=== PATIENT | female | born 1980 | race Caucasian/White ===

== ENCOUNTER 2017-07-18 19:15 | Emergency (ER) | payer MEDICAID ==
[2017-07-18 19:19] VITALS: BP 155/89
--- NOTE | 2017-07-18 19:30 | EDM.PDOC ---
ED HPI GENERAL MEDICAL PROBLEM - General Chief Complaint: Neurological Problem Stated Complaint: AMBULANCE Time Seen by Provider: 07/18/17 19:30 Source of Information: Reports: Patient History Limitations: Reports: No Limitations - History of Present Illness INITIAL COMMENTS - FREE TEXT/NARRATIVE: 36-year-old female presents the ED per ambulance when her family found her at home in a stuporous state. The annulus personnel were able to arouse her and identify that she had taken unidentified amount of a muscle relaxer at some point in the day. She is confused as to when she may have taken it and perhaps she took some this morning and some this afternoon again because of low back pain. The only other medication she reports taking is Tylenol. 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 She also fell recently and bruised up her left anterior knee. She did get up and walk to the chair in the hallway once the paramedics were able to arouse her. She walked as if she was drunk. She denies drinking any alcohol recently. Strength was about 6 days ago. There is no evidence of trauma to her head or neck. She is alert and answers quite well. She has mild dysarthric speech. She doesn't know the name of the muscle relaxant as it was never prescribed to her. These are somebody else's prescriptive medications. Therefore could've been Soma , Flexeril Norflex etc. She denies taking any Benadryl today. She apparently does not take any other medications. Vital signs her feel O2 sats to be 100% on room air. Respiratory rate of 13. No respiratory distress. Onset: Today, Unknown/Unsure (Unclear when she take had taken dosage of the muscle relaxants. It's unclear also how many she took.) Onset Date: 07/18/17 (Family identified that she was not answering her phone and had a nephew check on who found her in her bed unresponsive at about 1800 hrs.) Duration: Hour(s): Location: Reports: Generalized (Under the influence of a intoxicated.) Quality: Reports: Other Severity: Moderate (Dysarthric speech and ataxic gait.) Improves with: Reports: Other (Paramedics were able to arouse her with aggressive physical stimuli.) Worsens with: Reports: None Context: Reports: Other (Accidental over ingestion of muscle relaxant by history.). Denies: Activity, Exercise, Lifting, Sick Contact, Trauma Associated Symptoms: Reports: Confusion, Malaise, Other. 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: Musculoskeletal History: Reports: Back Pain, Chronic Oncologic (Cancer) History: Reports: Malignant Melanoma Dermatologic History: Reports: Melanoma Social & Family History - Tobacco Use Smoking Status *Q: Never Smoker - Caffeine Use Caffeine Use: Reports: None - Recreational Drug Use Recreational Drug Use: No - Living Situation & Occupation Living situation: Reports: Single Occupation: Unemployed ED ROS GENERAL - Review of Systems Review Of Systems: See Below Constitutional: Reports: Weakness (Generalized.) HEENT: Reports: Other (Speech is mildly dysarthric.) Respiratory: Reports: No Symptoms Cardiovascular: Reports: No Symptoms Endocrine: Reports: Fatigue GI/Abdominal: Reports: Nausea (Claims she is mildly nauseated at this time.) : Reports: No Symptoms Musculoskeletal: Reports: Back Pain (Diffuse low back pain radiate to the buttock but not down the legs), Joint Pain (Left knee pain after she fell on her left knee 2 days ago.) Skin: Reports: Other (Has a small puncture wound to the medial aspect of her left great toe.) Neurological: Reports: Confusion, Dizziness, Trouble Speaking (Dysarthria but mild.), Difficulty Walking (Ataxic gait required 2 person assist), Weakness, Change in Speech, Gait Disturbance. Denies: Seizure, Syncope, Tingling Psychiatric: Reports: No Symptoms Hematologic/Lymphatic: Reports: No Symptoms Immunologic: Reports: No Symptoms ED EXAM, NEURO - Physical Exam Exam: See Below Exam Limited By: Altered Mental Status (Mild. She is able to answer most questions appropriately although she can't remember when she took the supposedly muscle relaxants or when she last had anything to eat or drink.) General Appearance: Lethargic, Other (Speech is mildly dysarthric.) Eye Exam: Right Eye: Other (Pupils are sluggish), Bilateral Eye: Nystagmus (No nice diagnosis), PERRL Throat/Mouth: Normal Inspection, Normal Lips, Normal Oropharynx, Other Head Exam: Atraumatic (Tongue and oral cavity is moist. There is no evidence of tongue bite injury to suggest seizure.), Normocephalic Neck: Normal Inspection, Supple, Non-Tender, Full Range of Motion. No: Lymphadenopathy (L), Lymphadenopathy (R) Respiratory/Chest: No Respiratory Distress, Lungs Clear, Normal Breath Sounds, No Accessory Muscle Use, Other Cardiovascular: Normal Peripheral Pulses, Regular Rate, Rhythm, No Edema, No Gallop, No Murmur (Upper anterior chest is clear with no signs of aspiration.), No Rub GI/Abdominal: Normal Bowel Sounds, Soft, Non-Tender, No Organomegaly, Other ( Mildly obese.) Neurological: Normal Dorsiflexion, CN II-XII Intact, Normal Plantar Flexion, Normal Reflexes, Oriented x 3, Other (Rather flat affect.). No: Normal Gait DTR: 1+: Achilles (R), Achilles (L), 2+: Bicep (R), Bicep (L), Patella (R), Patella (L) Back Exam: Other (Not examined at this time) Extremities: Normal Inspection, Normal Range of Motion, Non-Tender, No Pedal Edema, Other (Small puncture wound that has been actively bleeding superficial skin janice medial aspect of left great toe.) Psychiatric: Flat Affect Skin Exam: Warm, Dry, Intact, Normal Color, No Rash Comments: Vital signs are normal. EKG INTERPRETATION EKG Date: 07/18/17 Time: 20:05 Rhythm: NSR Rate (Beats/Min): 68 [place]: Normal P-Wave: Present QRS: Other (Early R-wave transition. Consider septal hypertrophy pattern.) ST-T: Normal QT: Prolonged EKG Interpretation Comments: Borderline ECG. Course - Vital Signs Last Recorded V/S: Last Vital Signs Temp 36.3 C 07/18/17 19:16 Pulse 78 07/18/17 19:16 Resp 13 07/18/17 19:16 BP 155/89 H 07/18/17 19:16 Pulse Ox 100 07/18/17 19:16 - Orders/Labs/Meds Orders: Active Orders 24 hr Category Date Time Status EKG Documentation Completion [RC] STAT Care 07/18/17 19:36 Active Labs: Laboratory Tests 07/18/17 07/18/17 Range/Units 19:45 19:45 WBC 6.59 (3.98-10.04) K/mm3 RBC 4.87 (3.98-5.22) M/mm3 Hgb 11.4 (11.2-15.7) gm/L Hct 37.7 (34.1-44.9) % MCV 77.4 L (79.4-94.8) fl MCH 23.4 L (25.6-32.2) pg MCHC 30.2 L (32.2-35.5) g/dl RDW Std Deviation 50.6 H (36.4-46.3) fL Plt Count 374 H (182-369) K/mm3 MPV 9.2 L (9.4-12.3) fl Neutrophils % (Manual) 61 H (40-60) % Band Neutrophils % 0 (0-10) % Lymphocytes % (Manual) 30 (20-40) % Atypical Lymphs % 0 % Monocytes % (Manual) 5 (2-10) % Eosinophils % (Manual) 3 (0.7-5.8) % Basophils % (Manual) 1 (0.1-1.2) Platelet Estimate Adequate Hypochromasia 1+ slight Poikilocytosis 1+ slight Anisocytosis 1+ slight Microcytosis 1+ slight RBC Morph Comment Not Reportable Sodium 142 (136-145) mEq/L Potassium 3.3 L (3.5-5.1) mEq/L Chloride 107 (98-107) mEq/L Carbon Dioxide 26 (21-32) mEq/L Anion Gap 12.3 (5-15) BUN 11 (7-18) mg/dL Creatinine 0.7 (0.55-1.02) mg/dL Est Cr Clr Drug Dosing 118.99 mL/min Estimated GFR (MDRD) > 60 (>60) mL/min BUN/Creatinine Ratio 15.7 (14-18) Glucose 95 (74-106) mg/dL Calcium 8.3 L (8.5-10.1) mg/dL Magnesium 1.7 L (1.8-2.4) mg/dl Total Bilirubin 0.6 (0.2-1.0) mg/dL AST 14 L (15-37) U/L ALT 19 (14-59) U/L Alkaline Phosphatase 54 (46-116) U/L Total Protein 6.5 (6.4-8.2) g/dl Albumin 3.2 L (3.4-5.0) g/dl Globulin 3.3 gm/dL Albumin/Globulin Ratio 1.0 (1-2) Acetaminophen 0 L (10-30) ug/mL Ethyl Alcohol 0.00 (0.00) gm% Meds: Medications Discontinued Medications Generic Name Dose Route Start Last Admin Trade Name Henry PRN Reason Stop Dose Admin Dextrose/Sodium Chloride 1,000 mls @ 500 mls/hr 07/18/17 19:45 07/18/17 19:59 Dextrose 5%-Normal Saline IV 500 mls/hr ASDIRECTED IVY Administration Ondansetron HCl 4 mg 07/18/17 19:36 07/18/17 19:58 Zofran IVPUSH 07/18/17 19:37 Not Given ONETIME ONE - Radiology Interpretation Free Text/Narrative:: 36-year-old female presents to the ED per ambulance after her family found her unresponsive in her own bed. Paramedics were able to arouse her. Today they identified that she been taking some form of muscle relaxants perhaps throughout the entire day for low back pain. Appears that she has taken too much and caused excessive sedation. Unclear what the muscle relaxants are. They' ve not been prescribed to her they were some doses medication. Family members don't know what it is either. Paramedics were able to arouse her and get up from bed and walk to the chair in the hallway. She was exhibiting ataxic gait and speech is mildly dysarthric. She denies drinking any alcohol today and I spell no alcohol on her breath. No medications regularly. Other than being lethargic and with mild dysarthric speech neurologically she is intact with no signs of significant trauma. Point is diffuse low back pain which was not addressed at this time due to the patient not having a not being able to get out of bed or standing. Will examine her back later. Plan IV will be D5 normal saline at 500 mils per hour. Routine labs to be collected including ethanol and acetaminophen level. An ECG will be done to make sure the QT interval is okay. She will remain in the ED for observation until she can walk and talk normally. - Re-Assessments/Exams Free Text/Narrative Re-Assessment/Exam: 07/18/17 20:38 Labs are back. White count is 6.59 with 61% neutrophils no bands. Hemoglobin is a little low 11.4 with hematocrit of 37.7. MCV is a little low at 77.4 suggesting iron deficiency. Umbilical normal 3 years 74,000. Sodium is 142 with potassium slightly low at 3.3. Chloride 107 with a bicarbonate 26. And a gap is 12.3 with a BUN of 11. Creatinine is 0.7. She therefore is well hydrated. Glucose is 95 with a calcium of 8.3. Magnesium is 1.7. Liver function normal. Acetaminophen level was 0 and blood alcohol level is 0. 07/18/17 20:42 patient is much more alert and talkative. She's been up to the bathroom and could walk normally. I did examine her back which is coming from the mid left upper back. There appears to be overlying muscle spasm likely due to mild rib head subluxation but I did not find anything dramatic. Nothing that would require an x-ray. Will place her on Voltaren 50 mg to be taken every 8 hours when necessary for relief of pain and inflammation. 24 tablets prescribed. We discharged home in care of her daughter. Departure - Departure Time of Disposition: 20:43 Disposition: Home, Self-Care 01 Condition: Fair Clinical Impression: Sedative overdose Qualifiers: Encounter type: initial encounter Injury intent: accidental or unintentional Qualified Code(s): T42.71XA - Poisoning by unspecified antiepileptic and sedative-hypnotic drugs, accidental (unintentional), initial encounter Left-sided thoracic back pain Qualifiers: Chronicity: unspecified Qualified Code(s): M54.6 - Pain in thoracic spine - Discharge Information Prescriptions: Diclofenac Sodium [Voltaren] 50 mg PO Q8H PRN #24 tab.ec PRN Reason: Relief of back pain Instructions: Accidental Overdose, Back Pain, Adult Referrals: PCP,None [Primary Care Provider] - Forms: ED Department Discharge, ED Return to Work/School Form Additional Instructions: Evaluation the emergent today in regards to oversedation from taking muscle relaxants today. Muscle relaxants are being taken for back pain. It's unclear which muscle relaxant was being utilized. Some of them can last up to 12 hours in duration. You're found unarousable by family members and therefore the ambulance was summoned. They found it to be hypersomnolence or sedated but arousable on strong physical stimuli. Speech was mildly dysarthric like you had been drinking. He did get you up to walk to the chair in the hallway and found it to be mildly ataxic i.e. offkilter with balance like you have been drinking. This is an effect of the muscle relaxants. You're treated in the ED with intravenous fluids and time for the medication to wear off a bit. Lab tests proved to be within normal limits with no alcohol on board and no extravesical acetaminophen levels on your bloodstream. You're mental capacities improved while in the hospital as dig her ability to walk. I would therefore suggest muscle relaxant only at bedtime as they are strongly sedating in some people. Sometimes you may only need half a dose. Suggest use of Voltaren 50 mg every 8 hours as needed for relief of pain and inflammation in your been met mid back on the left side. This appears to be mild overlying muscle spasm likely due to a mild rib head subluxation. I did not find any pathology that would warn to x- ray at this time. Pain persists I would suggest chiropractic assessment and treatment. - My Orders Last 24 Hours: My Active Orders 07/18/17 19:36 EKG Documentation Completion [RC] STAT - Assessment/Plan Last 24 Hours: My Active Orders 07/18/17 19:36 EKG Documentation Completion [RC] STAT
[2017-07-18] MEDS ORDERED: Ondansetron 4 MG/2 ML SDV IVPUSH ONE (19:36)
[2017-07-18] MEDS ORDERED: Dextrose 5%-0.9% NaCl 1,000 ML IV SCH (19:45)
[2017-07-18 20:13] LABS: ACETAMINOPHEN 0 ug/mL (10-30)
== END 2017-07-18 21:00 | disposition home or self-care (01) ==
LOC: JD.ED 19:15
DX: T42.71XA Poisoning by unspecified antiepileptic and sedative-hypnotic drugs, accidental (unintentional), initial encounter (principal); M54.6 Pain in thoracic spine
CPT/HCPCS: 36415; 80053; 83735; 85025; 93005; 96360; 99285; G0480; J7042; 99284

== ENCOUNTER 2020-08-18 18:36 | Observation (INO) | payer MEDICAID ==
[2020-08-18] MEDS ORDERED: Sodium Chloride 0.9% 1,000 ML IV STA (19:35)
[2020-08-18] MEDS ORDERED: Ketorolac 30 MG/ML SDV IVPUSH ONE (19:35)
[2020-08-18] MEDS ORDERED: Ampicillin/Sulbactam Na 3 GM in Sodium Chloride 0.9% 100 ML IV ONE (19:42)
--- NOTE | 2020-08-18 19:45 | EDM.PDOC ---
ED HPI GENERAL MEDICAL PROBLEM - General Chief Complaint: ENT Problem Stated Complaint: SWOLLEN FACE TOOTH PAIN Time Seen by Provider: 08/18/20 18:42 Source of Information: Reports: Patient, RN Notes Reviewed History Limitations: Reports: No Limitations - History of Present Illness INITIAL COMMENTS - FREE TEXT/NARRATIVE: Patient is a 40-year-old female presenting to the emergency department with complaints of pain and swelling to her left lower jaw. She reports that she began having some discomfort last evening. Upon waking this morning, the area was swollen and has been getting progressively larger throughout the day. She reports that the swelling has progressed to the point where she cannot open her mouth. She reports that she has some old cavities in this area. She was making phone calls throughout the day to try to get in with a dentist, however none of them would see her as a new client. She denies any fever, chills, nausea, or vomiting. 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: Musculoskeletal History: Reports: Back Pain, Chronic Oncologic (Cancer) History: Reports: Malignant Melanoma Dermatologic History: Reports: Melanoma Social & Family History - Tobacco Use Tobacco Use Status *Q: Never Tobacco User - Caffeine Use Caffeine Use: Reports: None - Recreational Drug Use Recreational Drug Use: Yes Recreational Drug Type: Reports: Marijuana/Hashish Recreational Drug Use Frequency: Weekly - Living Situation & Occupation Living situation: Reports: Single Occupation: Unemployed ED ROS ENT - Review of Systems Review Of Systems: See Below Constitutional: Reports: No Symptoms. Denies: Fever, Chills HEENT: Reports: Ear Pain, Other (left sided facial swelling and pain) Respiratory: Reports: No Symptoms Cardiovascular: Reports: No Symptoms Endocrine: Reports: No Symptoms GI/Abdominal: Reports: No Symptoms : Reports: No Symptoms Musculoskeletal: Reports: No Symptoms Skin: Reports: No Symptoms Neurological: Reports: No Symptoms Psychiatric: Reports: No Symptoms Hematologic/Lymphatic: Reports: No Symptoms Immunologic: Reports: No Symptoms ED EXAM, ENT - Physical Exam Exam: See Below General Appearance: Alert, Anxious, Mild Distress Ears: Normal External Exam, Normal Canal, Hearing Grossly Normal, Normal TMs Mouth/Throat: Dental Abcess, Dental Pain, Lip Swelling (left lower), Other (significant left lower facial swelling) Respiratory/Chest: No Respiratory Distress, Lungs Clear, Normal Breath Sounds, No Accessory Muscle Use, Chest Non-Tender Cardiovascular: Normal Peripheral Pulses, Regular Rate, Rhythm, No Edema, No Gallop, No JVD, No Murmur, No Rub Neurological: Alert, Oriented, CN II-XII Intact, Normal Cognition, Normal Gait, Normal Reflexes, No Motor/Sensory Deficits Psychiatric: Normal Affect, Normal Mood Skin: Warm, Dry, Intact, Normal Color, No Rash Course - Vital Signs Last Recorded V/S: Last Vital Signs Temp 98.8 F 08/19/20 15:52 Pulse 95 08/19/20 15:52 Resp 20 08/19/20 15:52 BP 136/74 08/19/20 15:52 Pulse Ox 96 08/19/20 15:52 - Orders/Labs/Meds Orders: Active Orders 24 hr Category Date Time Status Patient Status [ADT] Routine ADT 08/18/20 21:59 Active Sodium Chloride 0.9% [Saline Flush] Med 08/18/20 19:35 Active 10 ml FLUSH ASDIRECTED PRN Peripheral IV Insertion Adult [OM.PC] Stat Oth 08/18/20 19:35 Ordered Medication Orders Acetaminophen (Acetaminophen 325 Mg Tab) 650 mg PO Q4H PRN PRN Reason: Pain (Mild 1-3)/fever Last Admin: 08/19/20 19:07 Dose: 650 mg Documented by: SANDRA Dexamethasone (Dexamethasone 4 Mg Tab) [address] [facility] Last Admin: 08/19/20 08:49 Dose: 6 mg Documented by: Admin: 08/18/20 23:26 Dose: 6 mg Documented by: SATYA Enoxaparin Sodium (Enoxaparin 30 Mg/0.3 Ml Syringe) [address] [facility] Last Admin: 08/19/20 09:38 Dose: 30 mg Documented by: Admin: 08/18/20 23:27 Dose: 30 mg Documented by: SATYA Ampicillin Sodium/Sulbactam (Sodium 3 gm/ Sodium Chloride) 100 mls @ 200 mls/hr IV Q6H IVY Last Admin: 08/19/20 18:59 Dose: 200 mls/hr Documented by: Infusion: 08/19/20 14:43 Dose: 200 mls/hr Documented by: Admin: 08/19/20 14:13 Dose: 200 mls/hr Documented by: Infusion: 08/19/20 09:19 Dose: 200 mls/hr Documented by: Admin: 08/19/20 08:49 Dose: 200 mls/hr Documented by: Infusion: 08/19/20 03:13 Dose: 200 mls/hr Documented by: Admin: 08/19/20 02:43 Dose: 200 mls/hr Documented by: SATYA Ketorolac Tromethamine (Ketorolac 15 Mg/Ml Sdv) 15 mg IVPUSH Q6H PRN PRN Reason: Pain Stop: 08/23/20 02:01 Last Admin: 08/19/20 17:14 Dose: 15 mg Documented by: Admin: 08/19/20 08:48 Dose: 15 mg Documented by: SANDRA Ondansetron HCl (Ondansetron 4 Mg Tab.Dis) 4 mg PO Q4H PRN PRN Reason: nausea, able to take PO Sodium Chloride (Sodium Chloride 0.9% 10 Ml Syringe) 10 ml FLUSH ASDIRECTED PRN PRN Reason: Keep Vein Open Last Admin: 08/18/20 21:22 Dose: 10 ml Documented by: Admin: 08/18/20 19:51 Dose: 10 ml Documented by: APRIL Labs: Laboratory Tests 08/18/20 08/18/20 Range/Units 19:50 19:50 WBC 12.73 H (3.98-10.04) K/mm3 RBC 4.97 (3.98-5.22) M/mm3 Hgb 10.6 L (11.2-15.7) gm/dl Hct 35.8 (34.1-44.9) % MCV 72.0 L D (79.4-94.8) fl MCH 21.3 L (25.6-32.2) pg MCHC 29.6 L (32.2-35.5) g/dl RDW Std Deviation 48.6 H (36.4-46.3) fL Plt Count 461 H D (182-369) K/mm3 MPV 8.6 L (9.4-12.3) fl Neut % (Auto) 80.8 H (34.0-71.1) % Lymph % (Auto) 11.1 L (19.3-51.7) % [place] % (Auto) 7.0 (4.7-12.5) % Eos % (Auto) 0.7 (0.7-5.8) Baso % (Auto) 0.2 (0.1-1.2) % Neut # (Auto) 10.29 H (1.56-6.13) K/mm3 Lymph # (Auto) 1.41 (1.18-3.74) K/mm3 [place] # (Auto) 0.89 H (0.24-0.36) K/mm3 Eos # (Auto) 0.09 (0.04-0.36) K/mm3 Baso # (Auto) 0.02 (0.01-0.08) K/mm3 Manual Slide Review Abnormal smear Sodium 139 (136-145) mEq/L Potassium 3.5 (3.5-5.1) mEq/L Chloride 102 (98-107) mEq/L Carbon Dioxide 25 (21-32) mEq/L Anion Gap 15.5 H (5-15) BUN 6 L (7-18) mg/dL Creatinine 0.8 (0.55-1.02) mg/dL Est Cr Clr Drug Dosing 86.63 mL/min Estimated GFR (MDRD) > 60 (>60) mL/min BUN/Creatinine Ratio 7.5 L (14-18) Glucose 117 H (70-99) mg/dL Calcium 8.2 L (8.5-10.1) mg/dL Total Bilirubin 0.7 (0.2-1.0) mg/dL AST 12 L (15-37) U/L ALT 19 (14-59) U/L Alkaline Phosphatase 72 (46-116) U/L Total Protein 7.8 (6.4-8.2) g/dl Albumin 3.3 L (3.4-5.0) g/dl Globulin 4.5 gm/dL Albumin/Globulin Ratio 0.7 L (1-2) Meds: Medications Generic Name Dose Route Start Last Admin Trade Name Henry PRN Reason Stop Dose Admin Acetaminophen 650 mg 08/18/20 22:26 08/19/20 19:07 Acetaminophen 325 Mg Tab PO 650 mg Q4H PRN Administration Pain (Mild 1-3)/fever Dexamethasone 6 mg 08/18/20 22:30 08/19/20 08:49 Dexamethasone 4 Mg Tab PO 6 mg DAILY IVY Administration Enoxaparin Sodium 30 mg 08/18/20 22:30 08/19/20 09:38 Enoxaparin 30 Mg/0.3 Ml Syringe SUBCUT 30 mg Q12H IVY Administration Ampicillin Sodium/Sulbactam 100 mls @ 200 mls/hr 08/19/20 02:00 08/19/20 18:59 Sodium 3 gm/ Sodium Chloride IV 200 mls/hr Q6H IVY Administration Ketorolac Tromethamine 15 mg 08/19/20 02:00 08/19/20 17:14 Ketorolac 15 Mg/Ml Sdv IVPUSH 08/23/20 02:01 15 mg Q6H PRN Administration Pain Ondansetron HCl 4 mg 08/18/20 22:26 Ondansetron 4 Mg Tab.Dis PO Q4H PRN nausea, able to take PO Sodium Chloride 10 ml 08/18/20 19:35 08/18/20 21:22 Sodium Chloride 0.9% 10 Ml Syringe FLUSH 10 ml ASDIRECTED PRN Administration Keep Vein Open Discontinued Medications Generic Name Dose Route Start Last Admin Trade Name Henry PRN Reason Stop Dose Admin Sodium Chloride 1,000 mls @ 150 mls/hr 08/18/20 19:35 08/18/20 19:55 Normal Saline IV 08/19/20 02:14 150 mls/hr NOW STA Administration Ampicillin Sodium/Sulbactam 100 mls @ 200 mls/hr 08/18/20 19:42 08/18/20 20:08 Sodium 3 gm/ Sodium Chloride IV 08/18/20 20:11 200 mls/hr ONETIME ONE Administration Iopamidol 85 ml 08/18/20 21:21 08/18/20 20:45 Iopamidol 612 Mg/Ml 100 Ml Bottle IVPUSH 08/18/20 21:22 85 ml ONETIME ONE Administration Ketorolac Tromethamine 30 mg 08/18/20 19:35 08/18/20 19:53 Ketorolac 30 Mg/Ml Sdv IVPUSH 08/18/20 19:36 30 mg ONETIME ONE Administration - Re-Assessments/Exams Free Text/Narrative Re-Assessment/Exam: Patient is a 40-year-old female presenting to the emergency department complaints of pain and swelling to her left lower jaw. On exam, her left, lower, anterior jaw is significantly swollen and tender to palpation. There is fluctuance noted within the area of swelling. She does not want any narcotic pain medications as that she states that they make her sick. I have ordered CBC, CMP, maxillofacial CT with contrast, NS at 150 mill per hour, Toradol 30 mg IV, and Unasyn 3 g IV. 08/18/20 21:51 Hematology was significant for WBC elevated at 12.73, neutrophils elevated at 10.29. Blood work was otherwise unremarkable. Maxillofacial CT with contrast shows a left facial cellulitis without abscess. There is appear a couple loops lucency surrounding tooth 19 concerning for dental abscess. Given the severity of patient's symptoms, I feel she would benefit from admission with IV antibiotics. Attempted to contact hospitalist, Dr. Frederick, however he did not answer and does not have voicemail set up. I will attempt to call him again shortly 08/18/20 22:[address] Miller. He has accepted the pt for admission and will be over to see the pt. Departure - Departure Time of Disposition: 22:00 Disposition: Refer to Observation Condition: Good Clinical Impression: Cellulitis of face, Dental abscess - Discharge Information Sepsis Event Note (ED) - Evaluation Sepsis Screening Result: No Definite Risk - My Orders Last 24 Hours: My Active Orders 08/18/20 19:35 Sodium Chloride 0.9% [Saline Flush] 10 ml FLUSH ASDIRECTED PRN Peripheral IV Insertion Adult [OM.PC] Stat 08/18/20 21:59 Patient Status [ADT] Routine - Assessment/Plan Last 24 Hours: My Active Orders 08/18/20 19:35 Sodium Chloride 0.9% [Saline Flush] 10 ml FLUSH ASDIRECTED PRN Peripheral IV Insertion Adult [OM.PC] Stat 08/18/20 21:59 Patient Status [ADT] Routine
[2020-08-18] MEDS: Sodium Chloride 0.9% 10 ML Syringe FLUSH PRN ×2 (19:51→21:22)
[2020-08-18] MEDS ORDERED: Iopamidol 612 MG/ML 100 ML Bottle IVPUSH ONE (21:21)
[2020-08-18] MEDS ORDERED: Acetaminophen 325 MG Tab PO PRN (22:26)
[2020-08-18] MEDS ORDERED: Ondansetron 4 MG Tab.DIS PO PRN (22:26)
--- NOTE | 2020-08-18 22:43 | PCM.HP.2 ---
H&P History of Present Illness - General Date of Service: 08/18/20 Admit Problem/Dx: Admission Diagnosis/Problem Admission Diagnosis/Problem Cellulitis of face - History of Present Illness Initial Comments - Free Text/Narative: This is a 40 y/o obese female presenting to the emergency department with complaints of pain and swelling of the left jaw and cheek. She reports that she began having some discomfort last evening. Upon waking this morning, the area was swollen and has been getting progressively larger throughout the day. She reports that the swelling has progressed to the point where she cannot open her mouth. She reports that she has some old cavities in this area. She tried seeing a dentist emergently today but could not get an appointment set up. She denies any fever but has had some chills. 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: Musculoskeletal History: Reports: Back Pain, Chronic Oncologic (Cancer) History: Reports: Malignant Melanoma Dermatologic History: Reports: Melanoma Social & Family History - Tobacco Use Tobacco Use Status *Q: Never Tobacco User - Caffeine Use Caffeine Use: Reports: None - Recreational Drug Use Recreational Drug Use: Yes Recreational Drug Type: Reports: Marijuana/Hashish Recreational Drug Use Frequency: Weekly - Living Situation & Occupation Living situation: Reports: Single Occupation: Unemployed H&P Review of Systems - Review of Systems: Review Of Systems: See Below Free Text/Narrative: Constitutional: no fever, chills or malaise. CVS: no chest pain, orthopnea or PND lungs: no cough, wheezes or dyspnea [place]: no nausea, vomiting or abdominal pain. [place]: no dysuria, frequency or hematuria. psych: denies hallucinations, depression, suicidal or homicidal ideations Exam - Exam Exam: See Below - Vital Signs Vital Signs: Last Vital Signs Temp 98.5 F 08/18/20 18:47 Pulse 103 H 08/18/20 18:47 Resp 18 08/18/20 18:47 BP 107/94 H 08/18/20 18:47 Pulse Ox 94 L 08/18/20 18:47 Weight: 358 lb 4.8 oz - Exam Physical Exam Comments:: General: Obese young female. In no distress. HEENT: Normocephalic, atraumatic pupils equal round reactive to light and accommodation. Patient has extensive swelling of the left jaw and cheek. Patient was unable to open her mouth fully due to pain and swelling on the left side. CVS: S1S2 appreciated. regular rate and rhythm no murmurs rubs or gallops Lungs: Clear without rales or wheezes Abdomen: Soft, obese, nontender. Bowel sounds are present Extremities: Without clubbing, cyanosis or edema. Psych: Stable mood and affect - Patient Data Lab Results Last 24 hrs: Laboratory Results - last 24 hr 08/18/20 08/18/20 Range/Units 19:50 19:50 WBC 12.73 H (3.98-10.04) K/mm3 RBC 4.97 (3.98-5.22) M/mm3 Hgb 10.6 L (11.2-15.7) gm/dl Hct 35.8 (34.1-44.9) % MCV 72.0 L D (79.4-94.8) fl MCH 21.3 L (25.6-32.2) pg MCHC 29.6 L (32.2-35.5) g/dl RDW Std Deviation 48.6 H (36.4-46.3) fL Plt Count 461 H D (182-369) K/mm3 MPV 8.6 L (9.4-12.3) fl Neut % (Auto) 80.8 H (34.0-71.1) % Lymph % (Auto) 11.1 L (19.3-51.7) % [place] % (Auto) 7.0 (4.7-12.5) % Eos % (Auto) 0.7 (0.7-5.8) Baso % (Auto) 0.2 (0.1-1.2) % Neut # (Auto) 10.29 H (1.56-6.13) K/mm3 Lymph # (Auto) 1.41 (1.18-3.74) K/mm3 [place] # (Auto) 0.89 H (0.24-0.36) K/mm3 Eos # (Auto) 0.09 (0.04-0.36) K/mm3 Baso # (Auto) 0.02 (0.01-0.08) K/mm3 Manual Slide Review Abnormal smear Sodium 139 (136-145) mEq/L Potassium 3.5 (3.5-5.1) mEq/L Chloride 102 (98-107) mEq/L Carbon Dioxide 25 (21-32) mEq/L Anion Gap 15.5 H (5-15) BUN 6 L (7-18) mg/dL Creatinine 0.8 (0.55-1.02) mg/dL Est Cr Clr Drug Dosing 86.63 mL/min Estimated GFR (MDRD) > 60 (>60) mL/min BUN/Creatinine Ratio 7.5 L (14-18) Glucose 117 H (70-99) mg/dL Calcium 8.2 L (8.5-10.1) mg/dL Total Bilirubin 0.7 (0.2-1.0) mg/dL AST 12 L (15-37) U/L ALT 19 (14-59) U/L Alkaline Phosphatase 72 (46-116) U/L Total Protein 7.8 (6.4-8.2) g/dl Albumin 3.3 L (3.4-5.0) g/dl Globulin 4.5 gm/dL Albumin/Globulin Ratio 0.7 L (1-2) Result Diagrams: 08/18/20 19:50 08/18/20 19:50 Sepsis Event Note - Evaluation Sepsis Screening Result: No Definite Risk - Focused Exam Vital Signs: Vital Signs Temp Pulse Resp BP Pulse Ox 08/18/20 18:47 98.5 F 103 H 18 107/94 H 94 L - Problem List (1) Cellulitis of face SNOMED Code(s): 525259064 ICD Code: L03.211 - CELLULITIS OF FACE Status: Acute Current Visit: Yes Problem Details: Admit pt to the medical floor and start her on unasyn Will prescribe decadron to help with the swelling and inflammation. (2) Dental abscess SNOMED Code(s): 343267682 ICD Code: K04.7 - PERIAPICAL ABSCESS WITHOUT SINUS Status: Acute Current Visit: Yes Problem Details: Pt was advised to make an appointment with a dentist to be seen as soon as possible. She will likely need to have the tooth with the cavity removed. (3) Morbid obesity SNOMED Code(s): 482967497 ICD Code: E66.01 - MORBID (SEVERE) OBESITY DUE TO EXCESS CALORIES Status: Acute Current Visit: Yes Problem Details: lifestyle modification and counseling was provided. (4) Full code status SNOMED Code(s): 579319668 ICD Code: Z78.9 - OTHER SPECIFIED HEALTH STATUS Status: Acute Current Visit: Yes (5) DVT prophylaxis SNOMED Code(s): 662673470, 573904478 ICD Code: Z29.9 - ENCOUNTER FOR PROPHYLACTIC MEASURES, UNSPECIFIED Status: Acute Current Visit: Yes Problem Details: SQ lovenox Problem List Initiated/Reviewed/Updated: Yes Orders Last 24hrs: Active Orders 24 hr Category Date Time Status Patient Status [ADT] Routine ADT 08/18/20 21:59 Active Peripheral IV Care [RC] . DIRECTED Care 08/18/20 19:35 Active Up With Assistance [RC] ASDIRECTED Care 08/18/20 22:26 Ordered VTE/DVT Education [RC] PER UNIT ROUTINE Care 08/18/20 22:26 Ordered Vital Signs [RC] QSHIFT Care 08/18/20 22:26 Ordered Regular Diet [DIET] Diet 08/18/20 Breakfast Ordered Max Facial Sinus w Cont [CT] Stat Exams 08/18/20 19:35 Taken Acetaminophen [TylenoL] Med 08/18/20 22:26 Ordered 650 mg PO Q4H PRN Ampicillin/Sulbactam Na [Unasyn] 3 gm Med 08/18/20 22:30 Ordered Sodium Chloride 0.9% [Normal Saline] 100 ml IV Q6H Enoxaparin [Lovenox] Med 08/18/20 22:30 Ordered 30 mg SUBCUT Q12H Ketorolac [Toradol] Med 08/18/20 22:27 Ordered 15 mg IVPUSH Q6H PRN Ondansetron [Zofran ODT] Med 08/18/20 22:26 Ordered 4 mg PO Q4H PRN Sodium Chloride 0.9% [Normal Saline] 1,000 ml Med 08/18/20 19:35 Active IV NOW Sodium Chloride 0.9% [Saline Flush] Med 08/18/20 19:35 Active 10 ml FLUSH ASDIRECTED PRN dexAMETHasone Med 08/18/20 22:30 Ordered 6 mg PO DAILY Peripheral IV Insertion Adult [OM.PC] Stat Oth 08/18/20 19:35 Ordered Resuscitation Status Routine Resus Stat 08/18/20 22:26 Ordered Medication Orders Acetaminophen (Acetaminophen 325 Mg Tab) 650 mg PO Q4H PRN PRN Reason: Pain (Mild 1-3)/fever Dexamethasone (Dexamethasone 4 Mg Tab) 6 mg PO DAILY IVY Enoxaparin Sodium (Enoxaparin 30 Mg/0.3 Ml Syringe) 30 mg SUBCUT Q12H IVY Sodium Chloride (Normal Saline) 1,000 mls @ 150 mls/hr IV NOW STA Stop: 08/19/20 02:14 Last Admin: 08/18/20 19:55 Dose: 150 mls/hr Documented by: APRIL Ampicillin Sodium/Sulbactam (Sodium 3 gm/ Sodium Chloride) 100 mls @ 200 mls/hr IV Q6H IVY Ketorolac Tromethamine (Ketorolac 15 Mg/Ml Sdv) 15 mg IVPUSH Q6H PRN PRN Reason: Pain Stop: 08/23/20 02:01 Ondansetron HCl (Ondansetron 4 Mg Tab.Dis) 4 mg PO Q4H PRN PRN Reason: nausea, able to take PO Sodium Chloride (Sodium Chloride 0.9% 10 Ml Syringe) 10 ml FLUSH ASDIRECTED PRN PRN Reason: Keep Vein Open Last Admin: 08/18/20 21:22 Dose: 10 ml Documented by: Admin: 08/18/20 19:51 Dose: 10 ml Documented by: APRIL - Mortality Measure Prognosis:: Good
[2020-08-18] MEDS: Dexamethasone 4 MG Tab PO SCH (23:26)
[2020-08-18] MEDS: Enoxaparin 30 MG/0.3 ML Syringe SUBCUT SCH (23:27)
[2020-08-19] MEDS: Ampicillin/Sulbactam Na 3 GM in Sodium Chloride 0.9% 100 ML IV SCH ×4 (02:43→18:59)
--- NOTE | 2020-08-19 07:41 | CT ---
CT maxillofacial Technique: Multiple axial sections were obtained through the maxillofacial structures. Intravenous contrast was utilized. Reconstructed coronal and sagittal images were obtained. Comparison: No previous studies available. Findings: There is mucosal thickening seen within the right side of the sphenoid sinus. Other portions of the paranasal sinuses showed nothing acute. Mastoid sinuses show nothing acute. Diffuse soft tissue edema is noted within the subcutaneous tissues within the left side of the face which involves both sides of the platysma muscle and abuts the masseter muscle. No definite fluid collections are seen to indicate discrete abscess within the soft tissues. There is lucency being seen around a left mandibular molar tooth which is either the second or third tooth. This is suspicious for possible tooth abscess. Impression: 1. Soft tissue edema within the left side of the face on both sides of platysma muscle with this soft tissue edema abutting the masseter muscle. No findings of soft tissue abscess are seen. Findings are most likely due to cellulitis. 2. Lucency around a left mandibular molar tooth either the second or third tooth. This is suspicious for possible tooth abscess. 3. Chronic mucosal thickening within the right side of the sphenoid sinus which appears to be chronic. I agree with preliminary report from [facility], finalized on 08/18/20, 10:42 PM CDT, code 1
[2020-08-19] MEDS: Ketorolac 15 MG/ML SDV IVPUSH PRN ×2 (08:48→17:14)
[2020-08-19] MEDS: Dexamethasone 4 MG Tab PO SCH (08:49)
[2020-08-19] MEDS: Enoxaparin 30 MG/0.3 ML Syringe SUBCUT SCH ×2 (09:38→23:50)
--- NOTE | 2020-08-19 12:38 | PCM.PN ---
- General Info Date of Service: 08/19/20 Admission Dx/Problem (Free Text): S: The pain and facial swelling is much improved today. She is able to open her jaw easily. - Patient Data Vitals - Most Recent: Last Vital Signs Temp 98.2 F 08/19/20 08:04 Pulse 85 08/19/20 08:04 Resp 16 08/19/20 08:04 BP 131/77 08/19/20 08:04 Pulse Ox 97 08/19/20 08:04 Weight - Most Recent: 357 lb 9.6 oz I&O - Last 24 Hours: Intake & Output 08/18/20 08/19/20 08/19/20 22:59 06:59 14:59 Intake Total 300 120 Output Total 500 Balance -200 120 Lab Results Last 24 Hours: Laboratory Results - last 24 hr 08/18/20 08/18/20 08/18/20 Range/Units 19:50 19:50 22:40 WBC 12.73 H (3.98-10.04) K/mm3 RBC 4.97 (3.98-5.22) M/mm3 Hgb 10.6 L (11.2-15.7) gm/dl Hct 35.8 (34.1-44.9) % MCV 72.0 L D (79.4-94.8) fl MCH 21.3 L (25.6-32.2) pg MCHC 29.6 L (32.2-35.5) g/dl RDW Std Deviation 48.6 H (36.4-46.3) fL Plt Count 461 H D (182-369) K/mm3 MPV 8.6 L (9.4-12.3) fl Neut % (Auto) 80.8 H (34.0-71.1) % Lymph % (Auto) 11.1 L (19.3-51.7) % [place] % (Auto) 7.0 (4.7-12.5) % Eos % (Auto) 0.7 (0.7-5.8) Baso % (Auto) 0.2 (0.1-1.2) % Neut # (Auto) 10.29 H (1.56-6.13) K/mm3 Lymph # (Auto) 1.41 (1.18-3.74) K/mm3 [place] # (Auto) 0.89 H (0.24-0.36) K/mm3 Eos # (Auto) 0.09 (0.04-0.36) K/mm3 Baso # (Auto) 0.02 (0.01-0.08) K/mm3 Manual Slide Review Abnormal smear Sodium 139 (136-145) mEq/L Potassium 3.5 (3.5-5.1) mEq/L Chloride 102 (98-107) mEq/L Carbon Dioxide 25 (21-32) mEq/L Anion Gap 15.5 H (5-15) BUN 6 L (7-18) mg/dL Creatinine 0.8 (0.55-1.02) mg/dL Est Cr Clr Drug Dosing 86.63 mL/min Estimated GFR (MDRD) > 60 (>60) mL/min BUN/Creatinine Ratio 7.5 L (14-18) Glucose 117 H (70-99) mg/dL Calcium 8.2 L (8.5-10.1) mg/dL Total Bilirubin 0.7 (0.2-1.0) mg/dL AST 12 L (15-37) U/L ALT 19 (14-59) U/L Alkaline Phosphatase 72 (46-116) U/L Total Protein 7.8 (6.4-8.2) g/dl Albumin 3.3 L (3.4-5.0) g/dl Globulin 4.5 gm/dL Albumin/Globulin Ratio 0.7 L (1-2) SARS-CoV-2 RNA (TRAVIS) Negative (NEGATIVE) Med Orders - Current: Current Medications Acetaminophen (Acetaminophen 325 Mg Tab) 650 mg PO Q4H PRN PRN Reason: Pain (Mild 1-3)/fever Dexamethasone (Dexamethasone 4 Mg Tab) 6 mg PO DAILY [facility] Last Admin: 08/19/20 08:49 Dose: 6 mg Documented by: Enoxaparin Sodium (Enoxaparin 30 Mg/0.3 Ml Syringe) 30 mg SUBCUT Q12H [facility] [place] Last Admin: 08/19/20 09:38 Dose: 30 mg Documented by: Ampicillin Sodium/Sulbactam (Sodium 3 gm/ Sodium Chloride) 100 mls @ 200 mls/hr IV Q6H [facility] [place] Last Admin: 08/19/20 08:49 Dose: 200 mls/hr Documented by: Ketorolac Tromethamine (Ketorolac 15 Mg/Ml Sdv) 15 mg IVPUSH Q6H PRN PRN Reason: Pain Stop: 08/23/20 02:01 Last Admin: 08/19/20 08:48 Dose: 15 mg Documented by: Ondansetron HCl (Ondansetron 4 Mg Tab.Dis) 4 mg PO Q4H PRN PRN Reason: nausea, able to take PO Sodium Chloride (Sodium Chloride 0.9% 10 Ml Syringe) 10 ml FLUSH ASDIRECTED PRN PRN Reason: Keep Vein Open Last Admin: 08/18/20 21:22 Dose: 10 ml Documented by: Discontinued Medications Sodium Chloride (Normal Saline) 1,000 mls @ 150 mls/hr IV NOW STA Stop: 08/19/20 02:14 Last Admin: 08/18/20 19:55 Dose: 150 mls/hr Documented by: Ampicillin Sodium/Sulbactam (Sodium 3 gm/ Sodium Chloride) 100 mls @ 200 mls/hr IV ONETIME ONE Stop: 08/18/20 20:11 Last Admin: 08/18/20 20:08 Dose: 200 mls/hr Documented by: Iopamidol (Iopamidol 612 Mg/Ml 100 Ml Bottle) 85 ml IVPUSH ONETIME ONE Stop: 08/18/20 21:22 Last Admin: 08/18/20 20:45 Dose: 85 ml Documented by: Ketorolac Tromethamine (Ketorolac 30 Mg/Ml Sdv) 30 mg IVPUSH ONETIME ONE Stop: 08/18/20 19:36 Last Admin: 08/18/20 19:53 Dose: 30 mg Documented by: Comments:: Patient is awake and aler. In no acute distress CVS: S1-S2 appreciated regular rhythm no murmurs rubs or gallops Lungs: Clear without rales or wheezes Abdomen: Soft, obese, nontender,bowel sounds present Extremities: No clubbing, cyanosis or edema. peripheral pulses 2+ Neuro: Sensations intact. gait is normal - Patient Data Lab Results Last 24 hrs: Laboratory Results - last 24 hr 08/18/20 08/18/20 08/18/20 Range/Units 19:50 19:50 22:40 WBC 12.73 H (3.98-10.04) K/mm3 RBC 4.97 (3.98-5.22) M/mm3 Hgb 10.6 L (11.2-15.7) gm/dl Hct 35.8 (34.1-44.9) % MCV 72.0 L D (79.4-94.8) fl MCH 21.3 L (25.6-32.2) pg MCHC 29.6 L (32.2-35.5) g/dl RDW Std Deviation 48.6 H (36.4-46.3) fL Plt Count 461 H D (182-369) K/mm3 MPV 8.6 L (9.4-12.3) fl Neut % (Auto) 80.8 H (34.0-71.1) % Lymph % (Auto) 11.1 L (19.3-51.7) % [place] % (Auto) 7.0 (4.7-12.5) % Eos % (Auto) 0.7 (0.7-5.8) Baso % (Auto) 0.2 (0.1-1.2) % Neut # (Auto) 10.29 H (1.56-6.13) K/mm3 Lymph # (Auto) 1.41 (1.18-3.74) K/mm3 [place] # (Auto) 0.89 H (0.24-0.36) K/mm3 Eos # (Auto) 0.09 (0.04-0.36) K/mm3 Baso # (Auto) 0.02 (0.01-0.08) K/mm3 Manual Slide Review Abnormal smear Sodium 139 (136-145) mEq/L Potassium 3.5 (3.5-5.1) mEq/L Chloride 102 (98-107) mEq/L Carbon Dioxide 25 (21-32) mEq/L Anion Gap 15.5 H (5-15) BUN 6 L (7-18) mg/dL Creatinine 0.8 (0.55-1.02) mg/dL Est Cr Clr Drug Dosing 86.63 mL/min Estimated GFR (MDRD) > 60 (>60) mL/min BUN/Creatinine Ratio 7.5 L (14-18) Glucose 117 H (70-99) mg/dL Calcium 8.2 L (8.5-10.1) mg/dL Total Bilirubin 0.7 (0.2-1.0) mg/dL AST 12 L (15-37) U/L ALT 19 (14-59) U/L Alkaline Phosphatase 72 (46-116) U/L Total Protein 7.8 (6.4-8.2) g/dl Albumin 3.3 L (3.4-5.0) g/dl Globulin 4.5 gm/dL Albumin/Globulin Ratio 0.7 L (1-2) SARS-CoV-2 RNA (TRAVIS) Negative (NEGATIVE) Result Diagrams: 08/18/20 19:50 08/18/20 19:50 Sepsis Event Note - Evaluation Sepsis Screening Result: No Definite Risk - Focused Exam Vital Signs: Vital Signs Temp Pulse Resp BP Pulse Ox 08/19/20 08:04 98.2 F 85 16 131/77 97 - Problem List & Annotations (1) Cellulitis of face SNOMED Code(s): 575248767 Code(s): L03.211 - CELLULITIS OF FACE Status: Acute Current Visit: Yes Annotation/Comment:: Continue IV Unasyn Will switch to oral antibiotic tomorrow and discharge patient home to follow-up with a dentist for definitive treatment of the dental cavities. (2) Dental abscess SNOMED Code(s): 300129131 Code(s): K04.7 - PERIAPICAL ABSCESS WITHOUT SINUS Status: Acute Current Visit: Yes Annotation/Comment:: Pt was advised to make an appointment with a dentist to be seen as soon as possible. She will likely need to have the tooth with the cavity removed. (3) Morbid obesity SNOMED Code(s): 049174504 Code(s): E66.01 - MORBID (SEVERE) OBESITY DUE TO EXCESS CALORIES Status: Acute Current Visit: Yes Annotation/Comment:: lifestyle modification and counseling was provided. (4) Full code status SNOMED Code(s): 432808249 Code(s): Z78.9 - OTHER SPECIFIED HEALTH STATUS Status: Acute Current Visit: Yes (5) DVT prophylaxis SNOMED Code(s): 752132593, 244220414 Code(s): Z29.9 - ENCOUNTER FOR PROPHYLACTIC MEASURES, UNSPECIFIED Status: Acute Current Visit: Yes Annotation/Comment:: SQ lovenox - Problem List Review Problem List Initiated/Reviewed/Updated: Yes - My Orders Last 24 Hours: My Active Orders 08/18/20 22:26 Up With Assistance [RC] BID VTE/DVT Education [RC] DAILY Vital Signs [RC] QSHIFT Acetaminophen [TylenoL] 650 mg PO Q4H PRN Ondansetron [Zofran ODT] 4 mg PO Q4H PRN Resuscitation Status Routine 08/18/20 22:30 Enoxaparin [Lovenox] 30 mg SUBCUT Q12H dexAMETHasone 6 mg PO DAILY 08/19/20 02:00 Ampicillin/Sulbactam Na [Unasyn] 3 gm Sodium Chloride 0.9% [Normal Saline] 100 ml IV Q6H Ketorolac [Toradol] 15 mg IVPUSH Q6H PRN
[2020-08-20] MEDS: Ampicillin/Sulbactam Na 3 GM in Sodium Chloride 0.9% 100 ML IV SCH ×2 (02:51→08:03)
[2020-08-20] MEDS: Ketorolac 15 MG/ML SDV IVPUSH PRN (07:59)
[2020-08-20] MEDS: Dexamethasone 4 MG Tab PO SCH (08:02)
[2020-08-20 08:15] VITALS: BP 132/65; PULSE 80
--- NOTE | 2020-08-20 09:41 | PCM.DCSUM1 ---
Discharge Summary - Hospital Course Free Text/Narrative:: Discharge diagnosis: Facial cellulitis Dental abscess Morbid obesity Discharge medications: See MAR Short history/hospital course: This is a 40 y/o obese female who presented to the emergency department with complaints of pain and swelling of the left jaw and cheek. She reported having some cavities on the left side of her jaw that recently got infected. She was unable to see a dentist emergently and therefore required inpatient hospitalization for IV Abx. She received IV Unasyn and decadron. The pain and swelling subsided withing 36 hrs. She was discharged home on a 7 days course of amoxicillin and advised to see a dentist as soon as possible. Discharge instructions: Condition on discharge: Pt was stable Activity : as tolerated. Diet : regular/ heart healthy diet. Diagnosis: Stroke: No - Discharge Data Discharge Date: 08/20/20 Discharge Disposition: Home, Self-Care 01 Condition: Good - Referral to Home Health Primary Care Physician: PCP None - Discharge Diagnosis/Problem(s) (1) Cellulitis of face SNOMED Code(s): 297166534 ICD Code: L03.211 - CELLULITIS OF FACE Status: Acute Current Visit: Yes Problem Details: Continue IV Unasyn Will switch to oral antibiotic tomorrow and discharge patient home to follow-up with a dentist for definitive treatment of the dental cavities. (2) Dental abscess SNOMED Code(s): 025196382 ICD Code: K04.7 - PERIAPICAL ABSCESS WITHOUT SINUS Status: Acute Current Visit: Yes Problem Details: Pt was advised to make an appointment with a dentist to be seen as soon as possible. She will likely need to have the tooth with the cavity removed. (3) Morbid obesity SNOMED Code(s): 889033896 ICD Code: E66.01 - MORBID (SEVERE) OBESITY DUE TO EXCESS CALORIES Status: Acute Current Visit: Yes Problem Details: lifestyle modification and counseling was provided. (4) Full code status SNOMED Code(s): 333618875 ICD Code: Z78.9 - OTHER SPECIFIED HEALTH STATUS Status: Acute Current Visit: Yes (5) DVT prophylaxis SNOMED Code(s): 062772552, 824560888 ICD Code: Z29.9 - ENCOUNTER FOR PROPHYLACTIC MEASURES, UNSPECIFIED Status: Acute Current Visit: Yes Problem Details: SQ lovenox - Patient Instructions Diet: Heart Healthy Diet Driving: May Drive Today - Discharge Plan Prescriptions/Med Rec: Amoxicillin 500 mg PO BID 7 Days #14 tab Home Medications: Home Meds Ibuprofen [Ibu-200] 200 mg PO Q4HR PRN 08/19/20 [History] Amoxicillin 500 mg PO BID 7 Days #14 tab 08/20/20 [Rx] Patient Handouts: Cellulitis, Adult Referrals: PCP,None [Primary Care Provider] - (Patient wants to follow up on her own, at [facility] and is making own appt. for Dentist.) - Discharge Summary/Plan Comment DC Time >30 min.: Yes - Patient Data Vitals - Most Recent: Last Vital Signs Temp 98.1 F 08/20/20 08:12 Pulse 80 08/20/20 08:12 Resp 16 08/20/20 08:12 BP 132/65 08/20/20 08:12 Pulse Ox 96 08/20/20 08:12 Weight - Most Recent: 354 lb 12.8 oz I&O - Last 24 hours: Intake & Output 08/19/20 08/20/20 08/20/20 22:59 06:59 14:59 Intake Total 800 500 Output Total 500 550 Balance 300 -50 Lab Results - Last 24 hrs: Laboratory Results - last 24 hr 08/19/20 Range/Units 12:53 WBC 13.08 H (3.98-10.04) K/mm3 RBC 4.78 (3.98-5.22) M/mm3 Hgb 10.3 L (11.2-15.7) gm/dl Hct 34.4 (34.1-44.9) % MCV 72.0 L (79.4-94.8) fl MCH 21.5 L (25.6-32.2) pg MCHC 29.9 L (32.2-35.5) g/dl RDW Std Deviation 48.5 H (36.4-46.3) fL Plt Count 460 H (182-369) K/mm3 MPV 8.5 L (9.4-12.3) fl Neut % (Auto) 92.0 H (34.0-71.1) % Lymph % (Auto) 5.2 L (19.3-51.7) % [place] % (Auto) 2.5 L (4.7-12.5) % Eos % (Auto) 0 L (0.7-5.8) Baso % (Auto) 0.1 (0.1-1.2) % Neut # (Auto) 12.04 H (1.56-6.13) K/mm3 Lymph # (Auto) 0.68 L (1.18-3.74) K/mm3 [place] # (Auto) 0.33 (0.24-0.36) K/mm3 Eos # (Auto) 0.00 L (0.04-0.36) K/mm3 Baso # (Auto) 0.01 (0.01-0.08) K/mm3 Manual Slide Review Abnormal smear Med Orders - Current: Current Medications Acetaminophen (Acetaminophen 325 Mg Tab) 650 mg PO Q4H PRN PRN Reason: Pain (Mild 1-3)/fever Last Admin: 08/19/20 19:07 Dose: 650 mg Documented by: Dexamethasone (Dexamethasone 4 Mg Tab) 6 mg PO DAILY [facility] Last Admin: 08/20/20 08:02 Dose: 6 mg Documented by: Enoxaparin Sodium (Enoxaparin 30 Mg/0.3 Ml Syringe) 30 mg SUBCUT Q12H [facility] Last Admin: 08/19/20 23:50 Dose: 30 mg Documented by: Ampicillin Sodium/Sulbactam (Sodium 3 gm/ Sodium Chloride) 100 mls @ 200 mls/hr IV Q6H [facility] Last Admin: 08/20/20 08:03 Dose: 200 mls/hr Documented by: Ketorolac Tromethamine (Ketorolac 15 Mg/Ml Sdv) 15 mg IVPUSH Q6H PRN PRN Reason: Pain Stop: 08/23/20 02:01 Last Admin: 08/20/20 07:59 Dose: 15 mg Documented by: Ondansetron HCl (Ondansetron 4 Mg Tab.Dis) 4 mg PO Q4H PRN PRN Reason: nausea, able to take PO Sodium Chloride (Sodium Chloride 0.9% 10 Ml Syringe) 10 ml FLUSH ASDIRECTED PRN PRN Reason: Keep Vein Open Last Admin: 08/18/20 21:22 Dose: 10 ml Documented by: Discontinued Medications Sodium Chloride (Normal Saline) 1,000 mls @ 150 mls/hr IV NOW STA Stop: 08/19/20 02:14 Last Admin: 08/18/20 19:55 Dose: 150 mls/hr Documented by: Ampicillin Sodium/Sulbactam (Sodium 3 gm/ Sodium Chloride) 100 mls @ 200 mls/hr IV ONETIME ONE Stop: 08/18/20 20:11 Last Admin: 08/18/20 20:08 Dose: 200 mls/hr Documented by: Iopamidol (Iopamidol 612 Mg/Ml 100 Ml Bottle) 85 ml IVPUSH ONETIME ONE Stop: 08/18/20 21:22 Last Admin: 08/18/20 20:45 Dose: 85 ml Documented by: Ketorolac Tromethamine (Ketorolac 30 Mg/Ml Sdv) 30 mg IVPUSH ONETIME ONE Stop: 08/18/20 19:36 Last Admin: 08/18/20 19:53 Dose: 30 mg Documented by:
[2020-08-20] MEDS: Enoxaparin 30 MG/0.3 ML Syringe SUBCUT SCH (11:29)
== END 2020-08-20 11:00 | disposition home or self-care (01) ==
LOC: JD.ED 18:36 → JD.MS 22:05
PROVIDERS: ADMIT Hospitalist; ATTEND Hospitalist
DX: L03.211 Cellulitis of face (principal); K04.7 Periapical abscess without sinus; E66.01 Morbid (severe) obesity due to excess calories; Z79.899 Other long term (current) drug therapy; Z20.822 Contact with and (suspected) exposure to COVID-19; Z68.43 Body mass index [BMI] 50.0-59.9, adult
CPT/HCPCS: 36415; 70487; 80053; 85025; 87635; 96365; 96366; 96372; 96375; 96376; 99284; A9270; G0378; J0295; J1650; J1885; J7030; J8540; Q9967; 99217; 99218; 99224; U0002

== ENCOUNTER 2022-01-16 14:55 | Emergency (ER) | payer SELFPAY ==
[2022-01-16 15:20] VITALS: BP 144/76; PULSE 79
[2022-01-16] MEDS ORDERED: Amoxicillin 500 MG Cap PO ONE (15:43)
[2022-01-16] MEDS ORDERED: Amoxicillin/Clavulanate K 875-125 MG Tab PO ONE (15:46)
== END 2022-01-16 16:06 | disposition home or self-care (01) ==
LOC: JD.ED 14:55
DX: K04.7 Periapical abscess without sinus (principal); Z79.899 Other long term (current) drug therapy
CPT/HCPCS: 99282; A9270

== ENCOUNTER 2022-02-03 22:13 | Emergency (ER) | payer SELFPAY ==
[2022-02-03 23:48] VITALS: BP 143/91; PULSE 70
[2022-02-04] MEDS ORDERED: Amoxicillin/Clavulanate K 875-125 MG Tab PO ONE (02:35)
== END 2022-02-04 02:51 | disposition home or self-care (01) ==
LOC: JD.ED 22:13
DX: K02.9 Dental caries, unspecified (principal); Z79.899 Other long term (current) drug therapy
CPT/HCPCS: 99282; A9270